=== PATIENT | male | born 1960 | race American Indian/Alaskan Native ===

== ENCOUNTER 2021-06-02 15:50 | Emergency (ER) | payer MEDICARE ==
[2021-06-02 16:08] VITALS: BP 121/81
[2021-06-02] MEDS ORDERED: SODIUM CHLORIDE 0.9% 1000 ML 1,000 ML IV ONE (16:20)
--- NOTE | 2021-06-02 16:23 | Emergency Department Report ---
ED General Adult HPI - General Chief complaint: Medical Clearance Stated complaint: DEHYDRATION Time Seen by Provider: 06/02/21 16:20 Source: patient Mode of arrival: Ambulatory Limitations: No Limitations - History of Present Illness Initial comments: Patient is 60 years old male with no significant past medical history. Patient presented to the ER complaining of generalized weakness and fatigue for the last 3 days. Patient stated that he started to have a watery diarrhea for the last 3 days. Patient stated that he was taking oral fluids with no improvement. Patient denied any nausea or vomiting. No fever or chills. No runny nose cough congestion. -: days(s) (3) - Related Data Allergies Allergy/AdvReac Type Severity Reaction Status Date / Time No Known Allergies Allergy Unverified 06/02/21 16:04 ED Review of Systems ROS: Stated complaint: DEHYDRATION Other details as noted in HPI Comment: All other systems reviewed and negative Constitutional: denies: chills, fever Respiratory: denies: cough, shortness of breath, SOB with exertion Cardiovascular: denies: chest pain, palpitations Gastrointestinal: diarrhea. denies: abdominal pain, nausea, vomiting, constipation, hematemesis, melena, hematochezia Musculoskeletal: denies: back pain Neurological: weakness. denies: headache, numbness, paresthesias, confusion, abnormal gait ED Past Medical Hx - Past Medical History Previous Medical History?: No - Surgical History Past Surgical History?: Yes Hx Appendectomy: Yes Additional Surgical History: knee surgery ED Physical Exam - General Limitations: No Limitations General appearance: alert, in no apparent distress - Head Head exam: Present: atraumatic, normocephalic, normal inspection - Eye Eye exam: Present: normal appearance, PERRL - ENT ENT exam: Present: mucous membranes dry - Neck Neck exam: Present: normal inspection, full ROM. Absent: tenderness, meningismus - Respiratory Respiratory exam: Present: normal lung sounds bilaterally - Cardiovascular Cardiovascular Exam: Present: regular rate, normal rhythm, normal heart sounds - GI/Abdominal GI/Abdominal exam: Present: soft, normal bowel sounds. Absent: distended, tenderness, guarding, rebound, rigid, organomegaly, mass, bruit, pulsatile mass, hernia - Extremities Exam Extremities exam: Present: normal inspection, full ROM, normal capillary refill. Absent: tenderness, pedal edema, joint swelling, calf tenderness - Back Exam Back exam: Present: normal inspection, full ROM. Absent: CVA tenderness (R), CVA tenderness (L) - Neurological Exam Neurological exam: Present: alert, oriented X3, CN II-XII intact, normal gait, reflexes normal. Absent: motor sensory deficit - Psychiatric Psychiatric exam: Present: normal mood - Skin Skin exam: Present: warm, dry, intact, normal color ED Course Vital Signs 06/02/21 06/02/21 15:58 16:07 Temperature 98.5 F Pulse Rate 94 H Respiratory 18 Rate Blood Pressure 121/81 O2 Sat by Pulse 91 95 Oximetry ED Medical Decision Making - Lab Data Result diagrams: 06/02/21 17:54 06/02/21 17:54 - Medical Decision Making Patient is 60 years old male with no significant past medical history. Patient presented to the ER complaining of generalized weakness and fatigue for the last 3 days. Patient stated that he started to have a watery diarrhea for the last 3 days. Patient stated that he was taking oral fluids with no improvement. Patient denied any nausea or vomiting. No fever or chills. No runny nose cough congestion. Patient clinical exam revealed dry mucous membrane. Patient received normal saline 1L. Patient denied any nausea or vomiting at this moment. Labs reviewed and is unremarkable. Patient advised to follow-up with his primary doctor in the next 2 to 3 days and to return to the ER if he develop any new symptoms. Critical care attestation.: If time is entered above; I have spent that time in minutes in the direct care of this critically ill patient, excluding procedure time. ED Disposition Clinical Impression: Acute dehydration, Diarrhea Disposition: HOME / SELF CARE / HOMELESS Is pt being admited?: No Condition: Stable Instructions: Dehydration, Adult, [id number], Diarrhea, Adult, [id number] Referrals: PRIMARY CARE, [Primary Care Provider] - 3-5 Days
[2021-06-02 18:12] LABS: Hematocrit 44.8 % (35.5-45.6); Hemoglobin 15.3 gm/dl (11.8-15.2); Mean Corpuscular HGB Conc 34 % (32-34); Mean Corpuscular Volume 98 fl (84-94); Platelet Count 153 K/mm3 (140-440); Red Cell Distribution Width 11.9 % (13.2-15.2)
[2021-06-02 18:23] LABS: Blood Urea Nitrogen 13 mg/dL (9-20); Calcium 8.6 mg/dL (8.4-10.2); Hemolysis Index 6
[2021-06-02 18:26] LABS: BUN/Creatinine Ratio 19
[2021-06-02 18:27] LABS: Albumin 3.7 g/dL (3.9-5); Bilirubin,Direct 0.4 mg/dL (0-0.2)
[2021-06-02 18:53] LABS: Total Cells Counted 100
[2021-06-02 18:54] LABS: Platelet Estimate Consistent w Auto; RBC Morphology Normal
== END 2021-06-02 18:47 | disposition home or self-care (01) ==
LOC: ED 15:50
DX: E86.0 Dehydration (principal); R19.7 Diarrhea, unspecified; Z98.890 Other specified postprocedural states
CPT/HCPCS: 36415; 80048; 80076; 85007; 85025; 96360; 99283

== ENCOUNTER 2021-07-08 15:35 | Emergency (ER) | payer MEDICARE ==
[2021-07-08] MEDS ORDERED: FAMOTIDINE 20 MG TAB PO ONE (17:18)
[2021-07-08] MEDS ORDERED: LIDOCAINE VISCOUS 2% 15 ML ORAL LIQD PO ONE (17:18)
[2021-07-08] MEDS ORDERED: ALUM-MAG HYDROXIDE-SIMETHICONE 200-200-20MG/5ML ORAL LIQD 30 ML PO ONE (17:18)
--- NOTE | 2021-07-08 17:53 | Emergency Department Report ---
ED Abdominal Pain HPI - General Chief Complaint: Abdominal Pain Stated Complaint: ABDOMINAL PAIN Time Seen by Provider: 07/08/21 17:11 Source: patient Mode of arrival: Ambulatory Limitations: No Limitations - History of Present Illness Initial Comments: Patient is a 61-year-old male presents emergency room complaints of epigastric abdominal pain that began last night. He has associated nausea. He denies any fever, vomiting, diarrhea, hematochezia, melena, hematemesis, chest pain, shortness of breath. He has a past medical history of hypertension CAD, and arthritis. Allergy to codeine. Past abdominal surgical history of appendectomy. He endorses heavy alcohol use and reports he drinks 5 times a week. - Related Data Previous Rx's Medication Instructions Recorded Last Taken Type Ondansetron [Zofran Odt] 4 mg PO Q8HR PRN #14 tab.rapdis 06/02/21 Unknown Rx Famotidine [Pepcid] 40 mg PO QHS #30 tablet 07/08/21 Unknown Rx Sucralfate [Carafate] 1 gm PO ACHS 7 Days #21 tablet 07/08/21 Unknown Rx Allergies Allergy/AdvReac Type Severity Reaction Status Date / Time codeine AdvReac Unknown Verified 07/08/21 17:18 ED Review of Systems ROS: Stated complaint: ABDOMINAL PAIN Other details as noted in HPI Comment: All other systems reviewed and negative ED Past Medical Hx - Past Medical History Hx Hypertension: Yes Additional medical history: CAD - Surgical History Hx Appendectomy: Yes Additional Surgical History: knee surgery - Social History Smoking Status: Current Some Day Smoker Substance Use Type: Alcohol - Medications Home Medications: Home Medications Medication Instructions Recorded Confirmed Last Taken Type Ondansetron [Zofran Odt] 4 mg PO Q8HR PRN #14 tab.rapdis 06/02/21 Unknown Rx Famotidine [Pepcid] 40 mg PO QHS #30 tablet 07/08/21 Unknown Rx Sucralfate [Carafate] 1 gm PO ACHS 7 Days #21 tablet 07/08/21 Unknown Rx ED Physical Exam - General Limitations: No Limitations General appearance: alert, in no apparent distress - Head Head exam: Present: atraumatic, normocephalic - Eye Eye exam: Present: normal appearance - ENT ENT exam: Present: mucous membranes moist - Respiratory Respiratory exam: Present: normal lung sounds bilaterally. Absent: respiratory distress, wheezes, rales, rhonchi, stridor, chest wall tenderness, accessory muscle use, decreased breath sounds, prolonged expiratory - Cardiovascular Cardiovascular Exam: Present: regular rate, normal rhythm, normal heart sounds. Absent: systolic murmur, diastolic murmur, rubs, gallop - GI/Abdominal GI/Abdominal exam: Present: soft, normal bowel sounds. Absent: distended, tenderness, guarding, rebound, rigid - Neurological Exam Neurological exam: Present: alert, oriented X3 - Psychiatric Psychiatric exam: Present: normal affect, normal mood - Skin Skin exam: Present: warm, dry, intact ED Course Vital Signs 07/08/21 07/08/21 17:11 18:53 Temperature 98.1 F 98.1 F Pulse Rate 81 78 Respiratory 18 18 Rate Blood Pressure 147/93 148/93 O2 Sat by Pulse 97 97 Oximetry ED Medical Decision Making - Lab Data Result diagrams: 07/08/21 17:46 07/08/21 17:46 Lab Results 07/08/21 07/08/21 Range/Units 17:46 17:46 WBC 9.7 (4.5-11.0) K/mm3 RBC 4.52 (3.65-5.03) M/mm3 Hgb 15.1 (11.8-15.2) gm/dl Hct 45.2 (35.5-45.6) % MCV 100 H (84-94) fl MCH 34 H (28-32) pg MCHC 34 (32-34) % RDW 13.2 (13.2-15.2) % Plt Count 262 (140-440) K/mm3 Lymph % (Auto) 20.3 (13.4-35.0) % [place] % (Auto) 5.9 (0.0-7.3) % Eos % (Auto) 5.0 H (0.0-4.3) % Baso % (Auto) 2.1 H (0.0-1.8) % Lymph # (Auto) 2.0 (1.2-5.4) K/mm3 [place] # (Auto) 0.6 (0.0-0.8) K/mm3 Eos # (Auto) 0.5 H (0.0-0.4) K/mm3 Baso # (Auto) 0.2 H (0.0-0.1) K/mm3 Seg Neutrophils % 66.7 (40.0-70.0) % Seg Neutrophils # 6.5 (1.8-7.7) K/mm3 Sodium 136 L (137-145) mmol/L Potassium 4.3 (3.6-5.0) mmol/L Chloride 100.1 (98-107) mmol/L Carbon Dioxide 25 (22-30) mmol/L Anion Gap 15 mmol/L BUN 10 (9-20) mg/dL Creatinine 0.5 L (0.8-1.3) mg/dL Estimated GFR > 60 ml/min BUN/Creatinine Ratio 20 % Glucose 98 (75-100) mg/dL Calcium 10.2 (8.4-10.2) mg/dL Total Bilirubin 0.60 (0.1-1.2) mg/dL AST 22 (5-40) units/L ALT 23 (7-56) units/L Alkaline Phosphatase 107 (35-129) units/L Troponin T < 0.010 (0.00-0.029) ng/mL Total Protein 8.2 (6.3-8.2) g/dL Albumin 4.3 (3.9-5) g/dL Albumin/Globulin Ratio 1.1 % Lipase 32 (13-60) units/L - EKG Data EKG shows normal: sinus rhythm, axis, QRS complexes Rate: normal - EKG Data 07/08/21 18:40 mildly prolonged TX interval 204 no STEMI - Medical Decision Making Patient is a 61-year-old male presents emergency room complaints of epigastric abdominal pain that began last night. He has associated nausea. He denies any fever, vomiting, diarrhea, hematochezia, melena, hematemesis, chest pain, short ness of breath. He has a past medical history of hypertension CAD, and arthritis. Allergy to codeine. Past abdominal surgical history of appendectomy. He endorses heavy alcohol use and reports he drinks 5 times a week. No abdominal tenderness on exam, no guarding, no rebound, no rigidity, no peritoneal signs. Vitals are stable. EKG with mild prolonged TX interval, no STEMI, normal axis. Labs are stable. Patient advised me that his symptoms get worse after he eats. Symptoms could likely related to PUD versus GERD versus gastritis. Patient given oral medications while in the emergency department which improved his symptoms and he was able to tolerate p.o. intake with no difficulty. Patient will be referred to GI for further evaluation. discussed the importance of primary care follow-up for reexamination. Discuss strict return precautions with patient. Advised patient Please take medication as prescribed. Increase your fluid intake. Follow the diet for acid reflux/ulcers. Follow-up with your primary care doctor and a GI doctor. return to emergency room for any new or worsening symptoms. Critical care attestation.: If time is entered above; I have spent that time in minutes in the direct care of this critically ill patient, excluding procedure time. ED Disposition Clinical Impression: Abdominal pain Qualifiers: Abdominal location: epigastric Qualified Code(s): R10.13 - Epigastric pain Disposition: HOME / SELF CARE / HOMELESS Is pt being admited?: No Does the pt Need Aspirin: No Condition: Stable Instructions: Peptic Ulcer, Food Choices for Gastroesophageal Reflux Disease, Adult, Abdominal Pain, Adult, [id number] Additional Instructions: Please take medication as prescribed. Increase your fluid intake. Follow the diet for acid reflux/ulcers. Follow-up with your primary care doctor and a GI doctor. return to emergency room for any new or worsening symptoms. Prescriptions: Famotidine [Pepcid] 40 mg PO QHS #30 tablet Sucralfate [Carafate] 1 gm PO ACHS 7 Days #21 tablet Referrals: [facility] [Provider Group] - 3-5 Days your, primary care doctor [Other] - 3-5 Days Time of Disposition: 18:40 Print Language: ALGERIAN
[2021-07-08 18:11] LABS: Basophils # (Auto) 0.2 K/mm3 (0.0-0.1); Basophils % (Auto) 2.1 % (0.0-1.8); Eosinophils # (Auto) 0.5 K/mm3 (0.0-0.4); Hematocrit 45.2 % (35.5-45.6); Hemoglobin 15.1 gm/dl (11.8-15.2); Lymphocytes % (Auto) 20.3 % (13.4-35.0); Mean Corpuscular HGB Conc 34 % (32-34); Mean Corpuscular Volume 100 fl (84-94); Monocytes # (Auto) 0.6 K/mm3 (0.0-0.8); Monocytes % (Auto) 5.9 % (0.0-7.3); Platelet Count 262 K/mm3 (140-440); Red Blood Count 4.52 M/mm3 (3.65-5.03); Red Cell Distribution Width 13.2 % (13.2-15.2)
[2021-07-08 18:23] LABS: Alanine Aminotransferase 23 units/L (7-56); Albumin 4.3 g/dL (3.9-5); Blood Urea Nitrogen 10 mg/dL (9-20); Calcium 10.2 mg/dL (8.4-10.2); Hemolysis Index 45
[2021-07-08 18:26] LABS: BUN/Creatinine Ratio 20
[2021-07-08 18:55] VITALS: BP 148/93
--- NOTE | 2021-07-09 10:39 | Electrocardiograph Report ---
[facility] Test Date: 2021-07-08 Test Time: 18:30:47 Pat Name: PEPPER RENE Department: Room: Gender: M [employer] Operator: [place] : 1960 Requested By: ABHIJEET ZEPEDA Order Number: [id number] Reading MD: Jamison Bartholomew Measurements Intervals [place] Rate: 77 P: 62 LA: 204 QRS: 43 QRSD: 93 T: 21 QT: 351 QTc: 398 Interpretive Statements Sinus rhythm Borderline prolonged LA interval Probable left atrial enlargement ST elevation, consider anterior injury No previous ECG available for comparison Electronically Signed On 07-09-2021 10:39:09 EDT by Jamison Bartholomew
== END 2021-07-08 19:35 | disposition home or self-care (01) ==
LOC: ED 15:35
DX: R10.13 Epigastric pain (principal); I10 Essential (primary) hypertension; I25.10 Atherosclerotic heart disease of native coronary artery without angina pectoris; Z90.89 Acquired absence of other organs; Z98.890 Other specified postprocedural states; F17.200 Nicotine dependence, unspecified, uncomplicated; Z88.5 Allergy status to narcotic agent
CPT/HCPCS: 36415; 80053; 83690; 84484; 85025; 93005; 99283